=== PATIENT | male | born 1965 | race Caucasian/White ===

== ENCOUNTER 2023-10-14 09:10 | Emergency (ER) | payer OTHER, SELFPAY ==
[2023-10-14] VITALS (13 sets, daily range): BP systolic 115–180; BP diastolic 64–78; PULSE 67–74; RESP 10–18; TEMP 36.6; O2SAT 94–100
--- NOTE | 2023-10-14 09:23 | ED.ANXIETY ---
HPI - Anxiety General Chief Complaint: Anxiety <SPENCER Cuevas Last Filed: 10/14/23 17:20> Stated Complaint: PANIC ATTACK <SPENCER Cuevas Last Filed: 10/14/23 17:20> Time Seen by Provider: 10/14/23 09:14 <SPENCER Cuevas Last Filed: 10/14/23 17:20> History of Present Illness HPI narrative: 58 Year old male reports for evaluation for anxiety. Patient states he has not had a lot of changes at work recently which is causing a lot of stress and anxiety. States over the past few days, he has had increasing anxiety. He woke up this morning and was hyperventilating, went to work and decided he could not take it anymore so came to the ER. States he has calmed down a little bit now, but is still feeling slightly anxious. Denies formal diagnosis of anxiety or depression, but does endorse history of anxiety and depression. Denies SI or HI. He is established with a PCP. <SPENCER Cuevas Last Filed: 10/14/23 17:20> Related Data Home Medications: Home Medications Medication Instructions Recorded Confirmed lisinopril 20 mg tablet 20 mg PO DAILY 02/20/20 10/14/23 multivitamin with minerals (Men's 1 tablet PO DAILY 02/20/20 10/14/23 One Daily tablet) trazodone 50 mg tablet mg DAILY 10/14/23 <SPENCER Cuevas Last Filed: 10/14/23 17:20> Allergies/Adverse Reactions: Allergies Allergy/AdvReac Type Severity Reaction Status Date / Time amoxicillin [From Augmentin] Allergy Nausea and Verified 10/14/23 09:25 Vomiting clavulanic acid Allergy Nausea and Verified 10/14/23 09:25 [From Augmentin] Vomiting <SPENCER Cuevas Last Filed: 10/14/23 17:20> Review of Systems Review of Systems: CONSTITUTIONAL: Denies fever, chills, or sweats. EYES: Denies visual changes, redness, or discharge. ENT: Denies rhinorrhea, congestion, sore throat, or otalgia. CARDIOVASCULAR: Denies chest pain, palpitations, or edema. RESPIRATORY: Denies cough or dyspnea. GASTROINTESTINAL: Denies abdominal pain, nausea, vomiting, or diarrhea. GENITOURINARY: Denies dysuria or hematuria. SKIN: Denies rash or itching. MUSCULOSKELETAL: Denies back pain, joint pain, or myalgia. NEUROLOGIC: Denies headache, numbness, or weakness. PSYCHIATRIC: See HPI <Yue Treadwell PA-C - Last Filed: 10/14/23 17:20> [facility] Past Medical History Medical History: Medical History Swimmer's ear of both sides <Yue Treadwell PA-C - Last Filed: 10/14/23 17:20> Social History Social History: Social History Smoking status: Former smoker Tobacco type: cigarettes Second hand tobacco smoke exposure: Yes Smoking end date: 12/14/02 Alcohol intake: current Drinks per week: 2 Substance use: never Substance use type: does not use <Yue Treadwell PA-C - Last Filed: 10/14/23 17:20> Exam Narrative: GENERAL: Well-appearing, well-nourished, and in no acute distress. Patient resting comfortably in exam bed. He is anxious appearing, conversational. Tearful HEAD: Normocephalic, atraumatic. EYES: PERRLA and EOMI. ENT: Nares clear, no rhinorrhea or epistaxis. Mucous membranes moist. NECK: Supple. CHEST: Clear to auscultation. No respiratory distress. HEART: Regular rate and rhythm. No murmur heard. Normal peripheral pulses. EXTREMITIES: Normal range of motion. No edema. SKIN: Warm, dry, no rash. NEURO: No focal deficits. Alert and oriented x3 PSYCH: Good judgment and insight. Anxious appearing, tearful. No hallucinations or delusions appreciated on exam. No SI or HI. <Yue Treadwell PA-C - Last Filed: 10/14/23 17:20> Course DRAFTING SUPERVISOR/PA Physician Supervision I agree with midlevel documentation; I performed the medical decision making component of this evaluation. <Lidia Baker MD - Last Filed: 10/14/23 17:32> Vital Signs Vit
[2023-10-14] MEDS: LORazepam (*CRX) 1 MG TABLET PO (09:42)
== END 2023-10-14 10:48 | disposition home or self-care (01) ==
PROVIDERS: Emergency Provider Physician Assistant; PCP Internal Medicine
DX: F41.9 Anxiety disorder, unspecified (principal); Z87.891 Personal history of nicotine dependence
CPT/HCPCS: 99283; A9270

== ENCOUNTER 2025-08-26 09:31 | Emergency (ER) | payer OTHER, SELFPAY ==
--- OUTSIDE RECORDS SUMMARY | 2025-08-26 09:33 | XMS_ITS | Encounter Summary ---
Author Organization [facility] Address [address] [place] [address] Phone Care Team Providers Care Dandy Tender Name Role Phone Richard Castaneda MD Primary Care Provider [phone] Malcolm Tripathi MD Unavailable [phone] Reason for Visit * Reason Comments Medication Refill Encounter Details Date Type Department Care Team (Late st Contact Info) Description 05/30/2023 Refill [facility] [address] [place] [phone] Richard Castaneda MD [address] [place] [address] Medication Refill Social History Tobacco Use Types Packs/Day Years Used Date Smoking Tobacco: Former Cigarettes 2 30 0 05/19/1977 - 05/19/2003 Smokeless Tobacco: Never Alcohol Use Standard Drinks/Week Comments Yes 12 (1 standard drink = 0.6 oz pu re alcohol) PHQ-2 Answer Date Recorded Total Score - Questions 1-9 0 03/15 Education Answer Date Recorded What is the highest level of school you have completed or the highest degree you have received? 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 No / Unsure 05/09/2023 5:59 PM CDT documented as of this encounter Miscellaneous Notes * Telephone Encounter - Richard Castaneda MD - 05/31/2023 9:33 AM CDT Refill request approved. * Telephone Encounter - Angela Agrawal RN - 05/31/2023 9:24 AM CDT Medication failed the protocol, provider to review and approve the medication order if appropriate. Requested Prescriptions Pending Prescriptions Disp Refills traZODone (DESYREL) 50 MG Tablet [Pharmacy Med Name: traZODone HCl 50 MG Oral Tablet] 90 Tablet 0 Sig: Take 1 Tablet by mouth nightly. Serotonin Modulators (6 Month Refill Only) Protocol Failed - 05/30/2023 11:55 AM Failed - Has an encounter in the past 6 months with a depression or anxiety visit diagnosis Passed - Visit with relevant provider in past 6 months or upcoming 90 days Recent Visits Date Type Provider Dept 04/12/23 Office Visit Richard Castaneda MD [facility] Showing recent visits within past 182 days and meeting all other requirements Future Appointments No visits were found meeting these conditions. Showing future appointments within next 90 days and meeting all other requirements Passed - No PRN Use for Trazodone Passed - Patient has established therapy with Serotonin Modulators for at least 6 months documented in this encounter Plan of Treatment Upcoming Encounters Date Type Department Care Team (Late st Contact Info) Description 04/22/2026 10:30 AM CDT Office Visit [facility] - [facility] - [place] [address] [place] [address] Richard Castaneda MD [address] [place] [address] documented as of this encounter Visit Diagnoses Diagnosis Anxiety Anxiety state, unspecified Insomnia, unspecified type documented in this encounter Additional Health Concerns Assessment Noted Time PHQ-9 Depression Total Score: 0 04/12/20 23 8:00 AM CDT documented as of this encounter Care Teams Dandy Tender Relationship Specialty Start Date End Date Richard Castaneda MD [address] [place] [address] PCP - General Internal Medicine 05/29/15 Malcolm Tripathi MD [facility] [address] [address] Consulting Physician Otolaryngology 03/25/20 documented as of this encounter
--- OUTSIDE RECORDS SUMMARY | 2025-08-26 09:33 | XMS_ITS | Clinical Summary ---
Author Organization [facility] Care Team Providers Care Party Plan Sales Director Name Role Phone Richard Castaneda MD Primary Care Provider [phone] Malcolm Tripathi MD Unavailable [phone] Allergies Active Allergy Reactions Criticality Noted Date Comments Amoxicillin-Pot Clavulanate Nausea 12/13/19 16 Medications Ibuprofen 200 MG Capsule Take 200 mg by mouth. Active fluticasone (FLONASE) 50 MCG/ACT Suspension 1-2 Sprays by Nasal route daily. Use in each nostril as directed. Active Multiple Vitamin (MULTIVITAMIN PO) Take by mouth. Active Probiotic Product (PROBIOTIC PO) Take by mouth. Active traZODone (DESYREL) 50 MG TabletIndication s:Anxiety,Insomn ia, unspecified type Take 1 Tablet by mouth nightly. 90 Tablet 3 06/04/2025 Active lisinopril (PRINIVIL, ZESTRIL) 20 MG TabletIndication s:Hypertension, essential Take 1 Tablet by mouth daily. 90 Tablet 3 06/20/2025 Active FLUoxetine (PROzac) 20 MG CapsuleIndicatio ns:ERLIN (generalized anxiety disorder) Take 1 Capsule by mouth daily. 90 Capsule 3 07/04/2025 Active Active Problems Problem Noted Date Diagnosed Date Anxiety 11/15/2023 Insomnia 03/31/2021 Hypertension, essential 01/01/2016 Mixed hyperlipidemia 12/31/2015 Resolved Problems Problem Noted Date Diagnosed Date Resolved Date Otalgia 03/14/2018 Encounters Date Type Department Care Team Description 07/23/2025 8:30 AM STORM DOOR MAKER Physical Therapy [facility] [address] [place] [address] Glenda Loyola APRN, SUPERCHARGER REPAIR SUPERVISOR Sylvia Samuels, PT Acute right-sided low back pain without sciatica (Primary Dx) Discharge Disposition: Discharged to home or Selfcare 07/23/2025 Travel 07/16/2025 7:00 AM STORM DOOR MAKER Physical Therapy [facility] [address] [place] [address] Glenda Loyola, BELLA, Jeffry Hurst, BALE STACKER Acute right-sided low back pain without sciatica (Primary Dx) Discharge Disposition: Discharged to home or Selfcare 07/16/2025 Travel 07/09/2025 7:00 AM CDT Physical Therapy [facility] [address] [place] [address] Glenda Loyola, LUMPIA WRAPPER MAKER, Jeffry Hurst, BALE STACKER Acute right-sided low back pain without sciatica (Primary Dx) Discharge Disposition: Discharged to home or Selfcare 07/09/2025 Travel 07/03/2025 7:00 AM CDT Physical Therapy [facility] [address] [place] [address] Glenda Loyola, LUMPIA WRAPPER MAKER, Jeffry Hurst, BALE STACKER Acute right-sided low back pain without sciatica (Primary Dx) Discharge Disposition: Discharged to home or Selfcare 07/03/2025 MyChart RX Renewal [facility] - [facility] - [place] [address] [place] [address] Richard Castaneda MD Medication Renewal Request 07/03/2025 Travel 06/26/2025 Plan of Care Documentation [facility] [address] [place] [address] 06/25/2025 9:00 AM CDT Physical Therapy [facility] [address] [place] [address] Glenda Loyola APRN, Helen Ortiz, PT Abnormal posture (Primary Dx); Acute right-sided low back pain without sciatica; Weakness Discharge Disposition: Discharged to home or Selfcare 06/25/2025 Travel 06/20/2025 MyChart RX Renewal [facility] [address] [place] [address] Richard Castaneda MD Medication Renewal Request 06/01/2025 4:15 PM CDT Office Visit [facility] [address] [place] [address] Glenda Loyola APRN, SUPERCHARGER REPAIR SUPERVISOR Acute right-sided low back pain without sciatica (Primary Dx) Discharge Disposition: Discharged to home or Selfcare 06/01/2025 Travel 05/27/2025 Refill [facility] [place] [place] [address] [place] [address] Richard Castaneda MD Medication Refill from Last 3 Months Immunizations Immunization Administration Dates Next Due Covid-19, Mrna, Lnp-s, Pf, 3 0 Mcg/0.3 Ml Dose (Pfizer) 01/18/2021,12/28/2020 Hepatitis A Vaccine 05/05/2000,11/05/1999 Influenza Vaccine 05/24/2017 Influenza Vaccine, Quadrivalent, PF 05/15,07/21/2022,06/02/2021,06/08,08/02/2018 Influenza, high-dose, trivalent, PF 07/25/2019 Influenza, recombinant, trivalent, PF 06/07/2024 PUR FLU 3+ YRS PRES FREE QUAD IM 09/08/2016 PUR TDAP 7+ YRS IM 09/08/2016 Pneumococcal conjugate PCV20 , polysaccharide [id number] conjugate, adjuvant, PF 04/17/2025 Zoster Vaccine Recombinant 06/02/2021,03/31/2021 Family History Medical History Relation Name Comments Heart Attack Brother bc Cancer Father christie bladder and pro state cancer Chronic Lung Disease Father christie Stroke Father christie Alzheimer's Disease Mother comroseanna High Cholesterol Mother comno Cancer Sister Shahla Lung High Cholesterol Sister Shahla Lung cancer Relation Name Status Comments Brother bc Father christie Mother comroseanna Sister Shahla Social History Tobacco Use Types Packs/Day Years Used Date Smoking Tobacco: Former Cigarettes 2 30 0 05/19/1977 - 05/19/2003 Smokeless Tobacco: Never Tobacco Cessation:Counseling Given: No Alcohol Use Standard Drinks/Week Comments Yes 6 (1 standard drink = 0.6 oz pur e alcohol) Social Connection and Isolation Panel Answer Date Recorded In a typical week, how many times do you talk on the phone with family, friends, or neighbors? Patient declined 04/16/2024 How often do you get togethe r with friends or relatives? Patient declined 04/16/2024 How often do you attend hindu or scientologist serv ices? Patient declined 04/16/2024 Do you belong to any clubs o r organizations such as hindu groups, unions, fraternal or athletic groups, or school groups? No 04/16/2024 How often do you attend meet ings of the clubs or organizations you belong to? Never 04/16/2024 Are you , , di vorced, , never , or living with a partner? Never 04/16/2024 AUDIT-C Answer Date Recorded Q1: How often do you have a drink containing alc ohol? 2-3 times a week 04/16/2024 Q2: How many drinks containi ng alcohol do you have on a typical day when you are drinking? 5 or 6 04/16/2024 Q3: How often do you have si x or more drinks on one occasion? Weekly 04/16/2024 Overall Financial Resource Strain (CARDIA) Answe r Date Recorded How hard is it for you to pa y for the very basics like food, housing, medical care, and heating? Not hard at all 04/16/2024 PHQ-2 Answer Date Recorded Total Score - Questions 1-9 0 04/2025 [facility] - Occupational Stress Questionnaire Answer Date Recorded Do you feel stress - tense, restless, nervous, or anxious, or unable to sleep at night because your mind is troubled all the time - these days? To some extent 04/16/2024 Hunger Vital Sign Answer Date Recorded Within the past 12 months, y ou worried that your food would run out before you got the money to buy more. Never true 04/16/20 24 Within the past 12 months, t he food you bought just didn't last and you didn't have money to get more. Never true 04/16/2024 PRAPARE - Transportation Answer Date Re corded In the past 12 months, has l ack of transportation kept you from medical appointments or from getting medications? No 12/2023 In the past 12 months, has l ack of transportation kept you from meetings, work, or from getting things needed for daily living? No 04/16/2024 Housing Stability Vital Sign Answer Emmanuel e Recorded In the last 12 months, was t here a time when you were not able to pay the mortgage or rent on time? No 10/17/2023 In the last 12 months, how many places have you lived? 1 10/17/2023 In the last 12 months, was t here a time when you did not have a steady place to sleep or slept in a assisted (including now)? No 10/17/2023 Housing Stability Vital Sign Answer Emmanuel e Recorded In the last 12 months, was t here a time when you were not able to pay the mortgage or rent on time? No 04/16/2024 Number of Times Moved in the Last Year Not on fi le 04/16/2024 At any time in the past 12 m [facility], were you homeless or living in a assisted (including now)? No 04/16/2024 Social Connection and Isolation Panel Answer Date Recorded In a typical week, how many times do you talk on the phone with family, friends, or neighbors? Once a week 04/16/2025 How often do you get together with friends or re latives? Never 04/16/2025 How often do you attend hindu or scientologist serv ices? Never 04/16/2025 Do you belong to any clubs o r organizations such as hindu groups, unions, fraternal or athletic groups, or school groups? No 04/16/2025 How often do you attend meet ings of the clubs or organizations you belong to? Never 04/16/2025 Are you , , di vorced, , never , or living with a partner? Never 04/16/2025 AUDIT-C Answer Date Recorded Q1: How often do you have a drink containing alc ohol? 2-3 times a week 04/16/2025 Q2: How many drinks containi ng alcohol do you have on a typical day when you are drinking? 3 or 4 04/16/2025 Q3: How often do you have si x or more drinks on one occasion? Less than monthly 04/16/2025 Overall Financial Resource Strain (CARDIA) Answe r Date Recorded How hard is it for you to pa y for the very basics like food, housing, medical care, and heating? Not hard at all 04/16/2025 [facility] - Occupational Stress Questionnaire Answer Date Recorded Do you feel stress - tense, restless, nervous, or anxious, or unable to sleep at night because your mind is troubled all the time - these days? To some extent 04/16/2025 Exercise Vital Sign Answer Date Recorde d On average, how many days pe r week do you engage in moderate to strenuous exercise (like a brisk walk)? 0 days 04/16/2025 On average, how many minutes do you engage in exercise at this level? 0 min 04/16/2025 Hunger Vital Sign Answer Date Recorded Within the past 12 months, y ou worried that your food would run out before you got the money to buy more. Never true 04/16/20 25 Within the past 12 months, t he food you bought just didn't last and you didn't have money to get more. Never true 04/16/2025 PRAPARE - Transportation Answer Date Re corded In the past 12 months, has l ack of transportation kept you from medical appointments or from getting medications? No 12/2024 In the past 12 months, has l ack of transportation kept you from meetings, work, or from getting things needed for daily living? No 04/16/2025 Housing Stability Vital Sign Answer Emmanuel e Recorded In the last 12 months, was t here a time when you were not able to pay the mortgage or rent on time? No 04/16/2025 In the past 12 months, how m any times have you moved where you were living? 0 04/16/2025 At any time in the past 12 m [facility], were you homeless or living in a assisted (including now)? No 04/16/2025 [facility] Utilities Answer Date Recorded In the past 12 months has th e electric, gas, oil, or water company threatened to shut off services in your home? No 04/16/2025 Education Answer Date Recorded What is the highest level of school you have completed or the highest degree you have received? 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 Not on file Not on file Last Filed Vital Signs Vital Sign Reading Time Taken Comments Blood Pressure 140/62 06/01/2025 4:11 PM CDT Pulse 74 06/01/2025 4:11 PM CDT Temperature 37.3 C (99.1 F) 06/01/2025 4:11 PM CDT Respiratory Rate 16 06/01/2025 4:11 PM CDT Oxygen Saturation 98% 06/01/2025 4:11 PM CDT Inhaled Oxygen Concentration - - Weight 81.6 kg (180 lb) 06/01/2025 4:11 PM CDT Height 185.4 cm (6' 1) 05/21/2025 12:46 PM CDT Body Mass Index 23.75 05/21/2025 12:46 PM CDT Plan of Treatment Upcoming Encounters Date Type Department Care Team (Late st Contact Info) Description 04/22/2026 10:30 AM CDT Office Visit [facility] - [facility] - [place] [address] [place] [address] Richard Castaneda MD [address] [place] [address] Health Maintenance Due Date Last Done Comments Cologuard 2009 Immunochemical Fecal Occult Blood 2009 SARS-COV-2 Immunization (2024- season) 2025 06/07/2024, 06/07/2023, 07/21/2022, Additional history exists Colonoscopy 05/26/2026 05/26/2016 Colorectal Cancer Screening 05/26/2026 Td Immunization Every 10 Years (Adults With 1 Tdap) 09/08/2026 09/08/2016 Respiratory Syncytial Virus (RSV) Immunization (Adult) (1 - 1-dose 75+ series) 2039 Hepatitis C Virus (HCV) Screening Completed 03/09/2017 Zoster Immunization Completed 06/02/2021, PSA Discussion Completed 04/06/2022 Pneumococcal Immunization (50+ years) Completed 04/17/2025 Pneumococcal Immunization Combined Discontinued 04/17/2025 Influenza Immunization Completed 5, 06/07/2024, 06/07/2023, Additional history exists Hepatitis B Immunization Aged Out No longer eligible based on patient's age to complete this topic Human Papillomavirus (HPV) Immunization (No Doses Required) Completed Meningococcal Immunization (ACWY) Aged Out No longer eligible based on patient's age to complete this topic Rotavirus Immunization Aged Out No lo nger eligible based on patient's age to complete this topic Procedures Procedure Name Priority Date/Time Associated Diagnosis Comments PSA SCREEN Routine 04/06/2022 8:25 AM CDT Encounter for prostate cancer screening HEPATITIS C ANTIBODY Routine 03/09/2017 10:25 AM CDT Encounter for hepatitis C screening test for low risk patient from Last 3 Months or Most Recently Relevant to Health Maintenance Results * PSA SCREEN (04/06/2022 8:25 AM CDT) PSA SCREEN, TOTAL 1.00 <=4.00 ng/mL 04/06/2022 1:07 PM CDT [facility] Blood Venipuncture / Unknown 04/06/2022 8:25 AM CDT 04/06/2022 8:25 AM CDT Narrative [facility] - 04/06/2022 1:07 PM CDT PSA NOTE: The PSA value should be used in conjunction with information available from clinical evaluation and other diagnostic procedures. us Richard Castaneda MD CHEMISTRY ORDERABLES Shannon l Result Performing Organization Address City/[facility] Co de Phone Number [facility] [address] [place] [address] * HEPATITIS C ANTIBODY (03/09/2017 10:25 AM CDT) hepatitis C antibody 0.17 <1 S/CO 03/09/2017 11:11 PM CDT [facility] Comment: Signal/Cutoff ratio < 0.79 is Nondetected Signal/Cutoff ratio 0.80-0.99 is Grayzone Signal/Cutoff ratio > 0.99 is Detected Supplemental assays are recommended if signal/cutoff ratio is >/=1.00. Signal/cutoff ratio result >/= 5.00 is 97% predictive of positivity for recombinant immunoblot assay (RIBA) and will be reported to the [place] Department of Public [facility] as required. Blood specimen (specimen) Venipuncture / Unknown 03/09/2017 10:25 AM CDT 03/09/2017 10:31 AM CDT us Richard Castaneda MD CHEMISTRY ORDERABLES Shannon l Result Performing Organization Address [facility] Co de Phone Number [facility] [address] [place] [address], from Last 3 Months or Most Recently Relevant to Health Maintenance Insurance [facility] Care Teams Party Plan Sales Director Relationship Specialty Start Date End Date Richard Castaneda MD [address] [place] [address] PCP - General Internal Medicine 05/29/15 Malcolm Tripathi MD [address] [facility] [address] [place] [address] Consulting Physician Otolaryngology 03/25/20
--- OUTSIDE RECORDS SUMMARY | 2025-08-26 09:33 | XMS_ITS | Encounter Summary ---
Author Organization [facility] Address [address] [place] [address] Phone Care Team Providers Care Game Attendant Name Role Phone Richard Castaneda MD Primary Care Provider [phone] Malcolm Tripathi MD Unavailable [phone] Reason for Visit * Reason Onset Date Comments Appointment 05/21/2025 Encounter Details Date Type Department Care Team (Late st Contact Info) Description 05/21/2025 Telephone [facility] [address] [place] [address] Richard Castaneda MD [address] [place] [address] Appointment Social History Tobacco Use Types Packs/Day Years Used Date Smoking Tobacco: Former Cigarettes 2 30 0 05/19/1977 - 05/19/2003 Smokeless Tobacco: Never Alcohol Use Standard Drinks/Week Comments Yes 6 [...] declined 04/16/2024 How often do you attend sabianist or shinto serv ices? Patient declined 04/16/2024 Do you belong to any clubs o r organizations such as sabianist groups, unions, fraternal or athletic groups, or [...] Total Score - Questions 1-9 0 04/2025 [facility] of Occupat ional Health - Occupational Stress [...] place to sleep or slept in a custodial (including now)? No 10/17/2023 Housing Stability Vital Sign Answer Emmanuel e Recorded In the last 12 months, was t here a time when you were not able to pay the mortgage or rent on time? No 04/16/2024 Number of Times Moved in the Last Year Not on fi le 04/16/2024 At any time in the past 12 m [facility], were you homeless or living in a custodial (including now)? No 04/16/2024 Social Connection and Isolation Panel Answer Date Recorded In a typical week, how many times do you talk on the phone with family, friends, or neighbors? Once a week 04/16/2025 How often do you get together with friends or re latives? Never 04/16/2025 How often do you attend sabianist or shinto serv ices? Never 04/16/2025 Do you belong to any clubs o r organizations such as sabianist groups, unions, fraternal or athletic groups, or [...] and heating? Not hard at all 04/16/2025 [facility] [place] of Occupat ional Health - Occupational Stress [...] any time in the past 12 m [facility], were you homeless or living in a custodial (including now)? 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 Not on file Not on file documented as of this encounter Functional Status * BP Answer Date of Assessment Author 138/64 05/21/2025 12:46 PM CDT Mccray, D ebra J, RMA * Temp Answer Date of Assessment Author 96.3 05/21/2025 12:46 PM CDAlfredo Recinos RMA * Pulse Answer Date of Assessment Author 61 05/21/2025 12:46 PM Alfredo Sanon RMA * Resp Answer Date of Assessment Author 20 05/21/2025 12:46 PM Alfredo Sanon RMA * SpO2 Answer Date of Assessment Author 96 05/21/2025 12:46 PM Alfredo Sanon RMA * Initial Score Answer Date of Assessment Author 0 05/21/2025 12:55 PM CDAlfredo Recinos RMA * Question Answer Date of Assessment Author Little interest or pleasure in doing things Not at all 05/21/2025 12:55 PM Helen Sanon RMA Feeling down, depressed, or hopeless Not at all 05/21/2025 12:55 PM Helen Sanon RMA * Initial Score Answer Date of Assessment Author 0 05/21/2025 12:55 PM Alfredo Sanon RMA * Question Answer Date of Assessment Author Little interest or pleasure in doing things Not at all 05/21/2025 12:55 PM Helen Sanon RMA Feeling down, depressed, or hopeless Not at all 05/21/2025 12:55 PM Helen Sanon RMPaco * Over the past 2 weeks, how often have you been bothered by any of the following problems? Question Answer Date of Assessment Author Patient Health Questionnaire -2 Score 0 05/21/2025 12:55 PM Helen Sanon RMA documented as of this encounter Mental Status * BP Answer Entry Date Author 138/64 05/21/2025 12:46 PM Alfredo Sanon RMA * Temp Answer Entry Date Author 96.3 05/21/2025 12:46 PM Alfredo Sanon RMA * Pulse Answer Entry Date Author 61 05/21/2025 12:46 PM Alfredo Sanon RMA * SpO2 Answer Entry Date Author 96 05/21/2025 12:46 PM CDT Alfredo Mccray RMA * Initial Score Answer Entry Date Author 0 05/21/2025 12:55 PM CDT Alfredo Mccray RMA * Question Answer Entry Date Author Little interest or pleasure in doing things Not at all 05/21/2025 12:55 PM CDT Helen Mccray RMA Feeling down, depressed, or hopeless Not at all 05/21/2025 12:55 PM CDT Helen Mccray RMA documented in this encounter Miscellaneous Notes * Telephone Encounter - Susan Ashford - 05/21/2025 8:22 AM CDT Symptom: Back Pain - Not From Injury Outcome: Schedule an appointment at earliest convenience. Reason: Caller denied all higher acuity questions The caller accepted this outcome. Caller Denied: * Age over 30: sudden AND severe upper back pain * Pain anywhere else on the body * Can't walk (unless normally can't walk) * Numbness of the leg * Weakness of the leg * Can't pass urine (can't pee) documented in this encounter Plan of Treatment Upcoming Encounters Date Type Department Care Team (Late st Contact Info) Description 04/22/2026 10:30 AM CDT Office Visit [facility] - Primary Care - [place] [place] [address] Richard Castaneda MD [address] [place] [address] documented as of this encounter Visit Diagnoses Not on filedocumented in this encounter Additional Health Concerns Assessment Noted Time PHQ-9 Depression Total Score: 0 05/21/20 25 12:55 PM CDT documented as of this encounter Care Teams Game Attendant Relationship Specialty Start Date End Date Richard Castaneda MD [address] [place] [address] PCP - General Internal Medicine 05/29/15 Malcolm Tripathi MD [address] [place] [address] Consulting Physician Otolaryngology 03/25/20 documented as of this encounter
[2025-08-26 09:42] VITALS: BP 141/70; PULSE 64; RESP 17; TEMP 36.6; O2SAT 99
--- OUTSIDE RECORDS SUMMARY | 2025-08-26 09:57 | XMS_ITS | Clinical Summary ---
Author Organization [facility] Care Team Providers Care Government Instructor Name Role Phone Richard Castaneda MD Primary Care Provider [phone] Malcolm Tripathi MD Unavailable [phone] Allergies Active Allergy Reactions Criticality Noted Date [...] Department Care Team Description 07/23/2025 8:30 AM PREPARED FOODS PRODUCTION TEAM MEMBER Physical Therapy [facility] [address] [place] [address] Glenda Loyola APRN, PHOTOGRAPHIC LABORATORY SUPERVISOR Sylvia Samuels, PT Acute right-sided low back pain without sciatica (Primary Dx) Discharge Disposition: Discharged to home or Selfcare 07/23/2025 Travel 07/16/2025 7:00 AM PREPARED FOODS PRODUCTION TEAM MEMBER Physical Therapy [facility] [address] [place] [address] Glenda Loyola, BELLA, Jeffry Hurst, CHIEF COMPLIANCE OFFICER Acute right-sided low back pain without sciatica (Primary Dx) Discharge Disposition: Discharged to home or Selfcare 07/16/2025 Travel 07/09/2025 7:00 AM CDT Physical Therapy [facility] [address] [place] [address] Glenda Loyola, ANCILLARY SPECIALIST, Jeffry Hurst, CHIEF COMPLIANCE OFFICER Acute right-sided low back pain without sciatica (Primary Dx) Discharge Disposition: Discharged to home or Selfcare 07/09/2025 Travel 07/03/2025 7:00 AM CDT Physical Therapy [facility] [address] [place] [address] Glenda Loyola, ANCILLARY SPECIALIST, Jeffry Hurst, CHIEF COMPLIANCE OFFICER Acute right-sided low back pain without sciatica (Primary Dx) Discharge Disposition: Discharged to home or Selfcare 07/03/2025 MyChart RX Renewal [facility] - Primary Care - [place] [address] [place] [address] Richard Castaneda MD Medication Renewal Request 07/03/2025 Travel 06/26/2025 Plan of Care Documentation [facility] [address] [place] [address] 06/25/2025 9:00 AM CDT Physical Therapy [facility] [address] [place] [address] Glenda Loyola APRN, Helen Ortiz, PT Abnormal posture (Primary Dx); Acute right-sided low back pain without sciatica; Weakness Discharge Disposition: Discharged to home or Selfcare 06/25/2025 Travel 06/20/2025 MyChart RX Renewal [facility] [address] [place] [address] Richard Castaneda MD Medication Renewal Request 06/01/2025 4:15 PM CDT Office Visit [facility] [address] [place] [address] Glenda Loyola APRN, PHOTOGRAPHIC LABORATORY SUPERVISOR Acute right-sided low back pain without sciatica (Primary Dx) Discharge Disposition: Discharged to home or Selfcare 06/01/2025 Travel 05/27/2025 Refill [facility] [address] [place] [address] Richard Castaneda MD Medication Refill from Last [...] IM 09/08/2016 Pneumococcal conjugate PCV20 , polysaccharide [id number] conjugate, adjuvant, PF 04/17/2025 Zoster Vaccine Recombinant [...] declined 04/16/2024 How often do you attend faith or roman catholic serv ices? Patient declined 04/16/2024 Do you belong to any clubs o r organizations such as faith groups, unions, fraternal or athletic groups, or [...] Total Score - Questions 1-9 0 04/2025 [facility] [place] [facility] - Occupational Stress Questionnaire Answer Date [...] place to sleep or slept in a mcfp (including now)? No 10/17/2023 Housing Stability Vital Sign Answer Emmanuel e Recorded In the last 12 months, was t here a time when you were not able to pay the mortgage or rent on time? No 04/16/2024 Number of Times Moved in the Last Year Not on fi le 04/16/2024 At any time in the past 12 m [facility], were you homeless or living in a mcfp (including now)? No 04/16/2024 Social Connection and Isolation Panel Answer Date Recorded In a typical week, how many times do you talk on the phone with family, friends, or neighbors? Once a week 04/16/2025 How often do you get together with friends or re latives? Never 04/16/2025 How often do you attend faith or roman catholic serv ices? Never 04/16/2025 Do you belong to any clubs o r organizations such as faith groups, unions, fraternal or athletic groups, or [...] and heating? Not hard at all 04/16/2025 [facility] of Occupat ional Health - Occupational [...] any time in the past 12 m [facility], were you homeless or living in a mcfp (including now)? No 04/16/[address] 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 - 04/06/2022 1:07 PM CDT PSA NOTE: The PSA value should be used in conjunction with information available from clinical evaluation and other diagnostic procedures. us Richard Castaneda MD CHEMISTRY ORDERABLES Shannon l Result Performing Organization Address City/[facility] Co de Phone Number [facility] [address] [place] [address] * HEPATITIS C ANTIBODY (03/09/2017 10:25 AM CDT) hepatitis C antibody 0.17 <1 S/CO 03/09/2017 11:11 PM CDT [facility] Comment: Signal/Cutoff ratio < 0.79 is Nondetected Signal/Cutoff ratio 0.80-0.99 is Grayzone Signal/Cutoff ratio > 0.99 is Detected Supplemental assays are recommended if signal/cutoff ratio is >/=1.00. Signal/cutoff ratio result >/= 5.00 is 97% predictive of positivity for recombinant immunoblot assay (RIBA) and will be reported to the [place] [facility] Public [facility] as required. Blood specimen (specimen) Venipuncture / Unknown 03/09/2017 10:25 AM CDT 03/09/2017 10:31 AM CDT us Richard Castaneda MD CHEMISTRY ORDERABLES Shannon l Result Performing Organization Address [facility] Co de Phone Number [facility] [address] [place] [address], from Last 3 Months or Most Recently Relevant to Health Maintenance Insurance [facility] Care Teams Government Instructor Relationship Specialty Start Date End Date Richard Castaneda MD [address] [place] [address] PCP - General Internal Medicine 05/29/15 Malcolm Tripathi MD [address] [facility] [address] [place] [address] Consulting Physician Otolaryngology 03/25/20
--- OUTSIDE RECORDS SUMMARY | 2025-08-26 09:57 | XMS_ITS | Clinical Summary ---
Author Organization [facility] [place] Address [address] [place] [address] Care Team Providers Care Bus System Operator Name Role Phone Richard Castaneda MD Primary Care Provider + Allergies Active Allergy Reactions Criticality Noted Date Comments Amoxicillin-Pot Clavulanate Nausea only Low 016 Medications fluticasone propionate (FLONASE) 50 mcg/actuation nasal spray Administer 1-2 sprays into affected nostril(s) daily Active lisinopriL (PRINIVIL,ZESTR [place]) 20 mg tablet Take 20 mg by mouth daily 3 Active traZODone (DESYREL) 50 mg tablet Take 50 mg by mouth nightly 2 Active ibuprofen (ADVIL,MOTRIN) 200 mg tab/cap Take 200 mg by mouth Active erythromycin (ILOTYCIN) ophthalmic ointment Apply ointment to left eyelid incisions [address] ointment inside the eye for irritation. 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 Gender Identity Not on file Sexual Orientation Not on file Plan of Treatment Health Maintenance Due Date Last Done Comments Colon Cancer Screening-Colonoscopy 1964 Depression Screening 1964 Hepatitis C Screening 1964 Prostate Cancer Screening-PSA 1964 Hepatitis B Screening 1982 Regular Well Visit/Exam 18-64 1982 Covid-19 Vaccine ( season) 2025 07/21/2022, 01/18/2021, 12/28/2020 Influenza Vaccine (#1) 2025 , 06/02/2021, 06/06/2020, Additional history exists DTaP/Tdap/Td Vaccine (2 - Td or Tdap) 09/08/2026 09/08/2016 Zoster Vaccine Completed 06/02/2021, 03/31/2021 Pneumococcal vaccine <65 Aged Out No longer eligible based on patient's age to complete this topic Insurance [facility] PL[facility] Care Teams Bus System Operator Relationship Specialty Start Date End Date Richard Castaneda MD [address] [place] [address] PCP - General Internal Medicine 10/07/22
--- OUTSIDE RECORDS SUMMARY | 2025-08-26 09:57 | XMS_ITS | Encounter Summary ---
Author Organization [facility] Address [address] [place] [address] Phone Care Team Providers Care Fire Services Plumber Name Role Phone Richard Castaneda MD Primary Care Provider [phone] Malcolm Tripathi MD Unavailable [phone] Reason for Visit * Reason Onset Date Comments Appointment 05/21/2025 Encounter Details Date Type Department Care Team (Late st Contact Info) Description 05/21/2025 Telephone [facility] [address] [place] [address] Richard Castaneda MD [address] [place] [address] Appointment Social History Tobacco Use Types Packs/Day [...] declined 04/16/2024 How often do you attend restorationist or jehovah's witness serv ices? Patient declined 04/16/2024 Do you belong to any clubs o r organizations such as restorationist groups, unions, fraternal or athletic groups, or [...] Total Score - Questions 1-9 0 04/2025 [facility] of Occupat ional Health - Occupational [...] place to sleep or slept in a retirement (including now)? No 10/17/2023 Housing Stability Vital Sign Answer Emmanuel e Recorded In the last 12 months, was t here a time when you were not able to pay the mortgage or rent on time? No 04/16/2024 Number of Times Moved in the Last Year Not on fi le 04/16/2024 At any time in the past 12 m [facility], were you homeless or living in a retirement (including now)? No 04/16/2024 Social Connection and Isolation Panel Answer Date Recorded In a typical week, how many times do you talk on the phone with family, friends, or neighbors? Once a week 04/16/2025 How often do you get together with friends or re latives? Never 04/16/2025 How often do you attend restorationist or jehovah's witness serv ices? Never 04/16/2025 Do you belong to any clubs o r organizations such as restorationist groups, unions, fraternal or athletic groups, or [...] and heating? Not hard at all 04/16/2025 [facility] [place] of Occupat ional Health - Occupational Stress [...] any time in the past 12 m [facility], were you homeless or living in a retirement (including now)? 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 Not [...] Description 04/22/2026 10:30 AM CDT Office Visit [facility] - Primary Care - [place] [place] [address] Richard Castaneda MD [address] [place] [address] documented as of this encounter Visit Diagnoses Not on filedocumented in this encounter Additional Health Concerns Assessment Noted Time PHQ-9 Depression Total Score: 0 05/21/20 25 12:55 PM CDT documented as of this encounter Care Teams Fire Services Plumber Relationship Specialty Start Date End Date Richard Castaneda MD [address] [place] [address] PCP - General Internal Medicine 05/29/15 Malcolm Tripathi MD [address] [place] [address] Consulting Physician Otolaryngology 03/25/20 documented as of this encounter
--- OUTSIDE RECORDS SUMMARY | 2025-08-26 09:57 | XMS_ITS | Encounter Summary ---
Author Organization [facility] Address [address] [place] [address] Phone Care Team Providers Care Salesperson Burial Plots Name Role Phone Richard Castaneda MD Primary Care Provider [phone] Malcolm Tripathi MD Unavailable [phone] Reason for Visit * Reason Comments Medication Refill Encounter Details Date Type Department Care Team (Late st Contact Info) Description 05/30/2023 Refill 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 Not [...] Dept 04/12/23 Office Visit Richard Castaneda MD [facility] Showing recent visits within past 182 days [...] Description 04/22/2026 10:30 AM CDT Office Visit [facility] - Primary Care - [place] [address] [place] [address] Richard Castaneda MD [address] [place] [address] documented as of this encounter Visit Diagnoses Diagnosis Anxiety Anxiety state, unspecified Insomnia, unspecified type documented in this encounter Additional Health Concerns Assessment Noted Time PHQ-9 Depression Total Score: 0 04/12/20 23 8:00 AM CDT documented as of this encounter Care Teams Salesperson Burial Plots Relationship Specialty Start Date End Date Richard Castaneda MD [address] [place] [address] PCP - General Internal Medicine 05/29/15 Malcolm Tripathi MD [facility] [address] [address] Consulting Physician Otolaryngology 03/25/20 documented as of this encounter
--- NOTE | 2025-08-26 10:12 | ED_ITS ---
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 [employer] , accidently cut himself with a knife Associated symptoms: none Related Data Home Medications ?Medication ?Instructions ?Recorded ?Confirmed ?Last Taken ?Type lisinopril 20 mg tablet 20 mg PO DAILY 02/20/20/10/06 Unknown History multivitamin with minerals (Men's 1 tablet PO DAILY 10/14/23 Unknown History One Daily tablet) trazodone 50 mg tablet mg DAILY 10/14/23 Unknown H istory Allergies Allergy/AdvReac Type Severity Reaction Status Date / Time amoxicillin (From Augmentin) Allergy Nausea and Verified 08/26/25 09:31 Vomiting clavulanic acid (From Allergy Nausea and Verified 08/26/25 09:31 Augmentin) Vomiting Review of Systems Review of Systems: All systems reviewed & are unremarkable except as noted in HPI and below Constitutional: Constitutional: Reports no additional constitutional complaints Eyes: Eyes: Reports no additional eye complaints Cardiovascular: Cardiovascular: Reports no additional cardiovascular complaints Musculoskeletal: Musculoskeletal: Reports as per HPI PMF Past Medical History Medical History Swimmer's ear of both sides Social History Social History Smoking status: Former smoker Tobacco type: cigarettes Second hand tobacco smoke exposure: Yes Smoking end date: 12/14/02 Alcohol intake: current Drinks per week: 2 Substance use: never Substance use type: does not use Exam Narrative: GENERAL: Well-appearing, well-nourished, and in no acute distress. HEAD: Normocephalic, atraumatic. EYES: PERRLA and EOMI. ENT: Nares clear, no rhinorrhea or epistaxis. Mucous membranes moist. NECK: Supple. CHEST: Clear to auscultation. No respiratory distress. HEART: Regular rate and rhythm. No murmur heard. Normal peripheral pulses. EXTREMITIES: Normal range of motion. No edema. laceration at the tip of the left fifth finger . SKIN: Warm, dry, no rash. NEURO: No focal deficits. Alert and oriented x3. PSYCH: Normal mood and affect. Course Vital Signs Vital signs: Vital Signs Temperature 36.6 C 08/26/25 09:42 Pulse Rate 64 08/26/25 09:42 Respiratory Rate 17 08/26/25 09:42 Blood Pressure 141/70 H 08/26/25 09:42 Pulse Oximetry 99 08/26/25 09:42 Oxygen Delivery Room Air 08/26/25 09:42 Temperature 36.6 C 08/26/25 09:42 Pulse Rate 64 08/26/25 09:42 Respiratory Rate 17 08/26/25 09:42 Blood Pressure 141/70 H 08/26/25 09:42 Pulse Oximetry 99 08/26/25 09:42 Oxygen Delivery Room Air 08/26/25 09:42 Procedures Laceration Laceration 1: Date: 08/26/25 Time: 10:16 Site: hand ( left 5h finger) Description: flap Depth: simple, single layer Local Anesthetic: lidocaine 1% ====== Skin Level ====== Skin layer closed with: nylon Size (cm): 5-0 Number of sutures: 4 ====== Subcutaneous Layer ====== ====== Muscle Layer ====== ====== Tendon Layer ====== MDM Differential Diagnosis Differential Diagnosis: lac , abrasion Discharge Plan Discharge Clinical Impression: Laceration of finger Qualifiers: Encounter type: initial encounter Finger: little finger Damage to nail status: without damage Foreign body presence: without foreign body Laterality: left Qualified Code(s): S61.217A - Laceration without foreign body of left little finger without damage to nail, initial encounter Patient Disposition: Home Condition: Stable Instructions: Laceration (ED) Additional Instructions: Keep the wound clean , sutures off 7 days. follow with your doctor if infection Patient Language: Icelandic Prescriptions: No Action lisinopril 20 mg tablet 20 mg PO DAILY multivitamin with minerals [Men's One Daily] Tablet 1 tablet PO DAILY trazodone 50 mg Tablet DAILY hydroxyzine pamoate 50 mg capsule 50 mg PO TID PRN (Reason: anxiety) Qty: 20 0RF Follow-up/Referrals: Leonel,Richard Gill MD [Primary Care Provider, Unknown] Time of Disposition: 10:19
[2025-08-26] MEDS: TETANUS,DIPHTHERIA,AC PERTUSSIS ADULT (0.5 ML) BOOSTRIX IM (10:19)
== END 2025-08-26 10:25 | disposition home or self-care (01) ==
PROVIDERS: Emergency Provider Family Medicine; PCP Internal Medicine
DX: S61.217A Laceration without foreign body of left little finger without damage to nail, initial encounter (principal); Z23 Encounter for immunization; Z87.891 Personal history of nicotine dependence; W26.0XXA Contact with knife, initial encounter
CPT/HCPCS: 12001; 90471; 90715; 99282; J2003